=== PATIENT | male | born 1955 | race Caucasian/White ===

== ENCOUNTER 2016-08-11 17:26 | Inpatient (IN) | payer BC, OTHER ==
[~2016-08-11] VITALS: Ht 182.9 cm; Wt 92.0 kg
[2016-08-11 17:52] VITALS: BP 131/82; PULSE 83; RESP 16; TEMP 98.2; O2SAT 94
--- NOTE | 2016-08-11 17:54 | PD ---
HPI Chief Complaint: head injury Time Seen by Provider: 17:54 Travel History International Travel<30 days: No Contact w/Intl Traveler<30days: No Traveled to known affect area: No History of Present Illness HPI 61-year-old male with history of hypertension, gout, who takes an aspirin daily , presents to emergency department for evaluation following a slip and fall. Patient was on a loading ramp when he fell, striking the back of his head. He did not lose consciousness. Patient reports a 2 out of 10 headache isolated to the area of injury. Denies any nausea or vomiting. No focal deficits or injury. Patient has not been recently ill. Denies chest tightness. He has no other symptoms to report. [facility] Past Medical History Gout: Yes Hypertension: Yes Social History Alcohol Use: No Tobacco Use: No Substance Use: No Allergies-Medications (Allergen,Severity, Reaction): Coded Allergies: No Known Allergies (Unverified , 08/11/16) Reported Meds & Prescriptions Reported Meds & Active Scripts Active Reported Vitamin D-1000 (Cholecalciferol) 1,000 Unit Tab 1,000 Units PO DAILY Metoprolol Tartrate 50 Mg Tab 50 Mg PO DAILY Allopurinol 100 Mg Tab 100 Mg PO DAILY Review of Systems Except as stated in HPI: all other systems reviewed are Neg Physical Exam Narrative GENERAL: Well-nourished male patient, in no acute distress SKIN: Focused skin assessment warm/dry. HEAD: 3 cm vertical laceration to the left occipital scalp. Normocephalic. EYES: Pupils equal and round. No scleral icterus. No injection or drainage. ENT: No nasal bleeding or discharge. Mucous membranes pink and moist. NECK: Trachea midline. No JVD. Cervical collar is in place. CARDIOVASCULAR: Regular rate and rhythm. No murmur appreciated. RESPIRATORY: No accessory muscle use. Clear to auscultation. Breath sounds equal bilaterally. GASTROINTESTINAL: Abdomen soft, non-tender, nondistended. Hepatic and splenic margins not palpable. MUSCULOSKELETAL: No obvious deformities. No clubbing. No cyanosis. No edema. NEUROLOGICAL: Awake and alert. No obvious cranial nerve deficits. Motor grossly within normal limits. Normal speech. PSYCHIATRIC: Appropriate mood and affect; insight and judgment normal. Data Data Last Documented VS Vital Signs Date Time Temp Pulse Resp B/P Pulse Ox O2 Delivery O2 Flow Rate FiO2 08/11/16 17:52 98.2 83 16 131/[address] Brain W/O Iv Contrast(Rout) (08/11/16 ) Ct Cerv Spine W/O Contrast (08/11/16 ) Iv Access Insert/Monitor (08/11/16 19:22) Complete Blood Count With Diff (08/11/16 19:22) Basic Metabolic Panel (Bmp) (08/11/16 19:22) Coag Profile (08/11/16 19:22) Electrocardiogram (08/11/16 ) Admit Order (Ed Use Only) (08/11/16 19:40) [facility] Medical Decision Making Medical Screen Exam Complete: Yes Emergency Medical Condition: Yes Medical Record Reviewed: Yes Differential Diagnosis Laceration superficial versus deep versus Hematoma versus skull fracture versus intracranial hemorrhage versus minor head injury Narrative Course 61-year-old male presents to emergency department for evaluation. Patient appears without distress. He does have a 3 cm laceration to the left occipital scalp. Bleeding is controlled. Neuro exam is nonfocal. CT imaging of the brain and cervical spine are ordered. Last Impressions Head CT 08/11/16 0000 Signed Impressions: Service Date/Time: July 18:40 - CONCLUSION: 1. Small acute subdural hemorrhage in between the leaves of the falx. No midline shift. 2. Chronic-appearing sinus disease as above. 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 Kp Royal MD Cervical Spine CT 08/11/16 0000 Signed Impressions: Service Date/Time: July 18:40 - CONCLUSION: Intact cervical spine. Degenerative changes with bilateral foraminal stenosis at C5/C6 and C6/C7. Kp Royal MD Cervical collar is removed. Labs are ordered. Patient is informed of his CT results. Laceration is repaired. A call has been placed to Dr. Yanes neurosurgeon title one reading teacher. Patient [facility] be [facility] to the [facility] under his service. Procedures Procedure Narrative LACERATION LOCATION: Left occipital scalp LENGTH: 3 cm NUMBER OF STITCHES/OBIE: 2 stable REPAIR: The area of the laceration was prepped with Betadine and sterilely draped.The wound was copiously irrigated and explored without evidence of foreign body, tendon injury or neurovascular injury. The wound was closed using obie. This was a single layer repair. Patient tolerated the procedure well. Diagnosis Primary Impression: SDH (subdural hematoma) Additional Impression: Scalp laceration Qualified Code: S01.01XA - Scalp laceration, initial encounter Admitting Information Admitting Physician Requests: Admit Condition: Stable Bebe Andujar Aug 11, 2016 17:54
[2016-08-11] MEDS ORDERED: VITA1000 PO (18:03)
[2016-08-11] MEDS ORDERED: ALLO100T PO (18:03)
[2016-08-11] MEDS ORDERED: METO50TA PO (18:03)
--- NOTE | 2016-08-11 19:01 | RADRPT ---
EXAM DATE/TIME: 08/11/2016 18:40 [facility] COMPARISON: No previous studies available for comparison. INDICATIONS : Trauma, slip and fall on concrete. RADIATION DOSE: 56.35 CTDIvol (mGy) MEDICAL HISTORY : None SURGICAL HISTORY : None. ENCOUNTER: Initial ACUITY: 1 day PAIN SCALE: 5/10 LOCATION: cranial TECHNIQUE: Multiple contiguous axial images were obtained of the head. Using automated exposure control and adj ustment of the mA and/or kV according to patient size, radiation dose was kept as low as reasonably a chievable to obtain optimal diagnostic quality images. FINDINGS: Small amount of acute subdural blood seen in between the leaves of the falx. No other intracranial he morrhage demonstrated. No mass, mass effect or midline shift. No evidence of an acute ischemic event. Incidentally seen basal ganglia calcification. The skull is intact. Completely opacified and partially expanded right maxillary air cell, most likely mucocele. There is near-complete opacification of the right frontal air cells as well. CONCLUSION: 1. Small acute subdural hemorrhage in between the leaves of the falx. No midline shift. 2. Chronic-appearing sinus disease as above. 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 Kp Royal MD on August 11, 2016 at 18:56 Board Certified Radiologist. This report was verified electronically.
--- NOTE | 2016-08-11 19:07 | RADRPT ---
EXAM DATE/TIME: 08/11/2016 18:40 [facility] COMPARISON: No previous studies available for comparison. INDICATIONS : Trauma, slip and fall on concrete. RADIATION DOSE: 34.75 CTDIvol (mGy) MEDICAL HISTORY : None SURGICAL HISTORY : None. ENCOUNTER: Initial ACUITY: 1 day PAIN SCALE: 3/10 LOCATION: neck TECHNIQUE: Volumetric scanning of the cervical spine was performed. Multiplanar reconstructions in the sagittal, coronal and oblique axial planes were performed. Using automated exposure control and adjustment o f the mA and/or kV according to patient size, radiation dose was kept as low as reasonably achievable to obtain optimal diagnostic quality images. FINDINGS: Cervical spine alignment is normal. Vertebral bodies have normal height. No cortical break or trabecu lar disruption. Disc space narrowing with uncovertebral and facet osteoarthritis noted, moderate to severe at C5/C6 a nd moderate at C6/C7. There is bilateral foraminal stenosis at both of these levels. Juxtavertebral soft tissues are within normal limits. CONCLUSION: Intact cervical spine. Degenerative changes with bilateral foraminal stenosis at C5/C6 and C6/C7. Kp Royal MD on August 11, 2016 at 19:03 Board Certified Radiologist. This report was verified electronically.
[2016-08-11 20:02] LABS: AUTOMATED NEUTROPHIL # 11.3 TH/MM3 (1.8-7.7); BASOPHIL # 0.1 TH/MM3 (0-0.2); BASOPHIL % 0.4 % (0.0-2.0); EOSINOPHIL # 0.2 TH/MM3 (0-0.4); EOSINOPHIL % 1.4 % (0.0-4.0); HEMATOCRIT 44.9 % (39.0-51.0); HEMO FLAGS DIFF FINAL; LYMPH % 10.8 % (9.0-44.0); LYMPHOCYTE # 1.5 TH/MM3 (1.0-4.8); MEAN CELL VOLUME 90.3 FL (80.0-100.0); MEAN CORPUSCULAR HEMOGLOBIN 31.4 PG (27.0-34.0); MEAN CORPUSCULAR HGB CONC 34.8 % (32.0-36.0); MONO % 5.7 % (0.0-8.0); NEUT % 81.7 % (16.0-70.0); PLATELET COUNT 240 TH/MM3 (150-450); RED BLOOD COUNT 4.97 MIL/MM3 (4.50-5.90); RED CELL DISTRIBUTION WIDTH 13.3 % (11.6-17.2); WHITE BLOOD COUNT 13.8 TH/MM3 (4.0-11.0)
[2016-08-11 20:18] LABS: APTT (PATIENT) 25.9 SEC (24.3-30.1); PROTHROMBIN TIME - PATIENT 10.7 SEC (9.8-11.6)
[2016-08-11 20:20] VITALS: BP 134/78; PULSE 74; RESP 14; O2SAT 99
[2016-08-11 20:44] LABS: BICARBONATE 24.8 MEQ/L (21.0-32.0); POTASSIUM 3.8 MEQ/L (3.5-5.1)
[2016-08-11] MEDS ORDERED: RESP: ALBUTEROL 2.5 MG/3 ML NEB (PRN) NEB (21:15)
[2016-08-11] MEDS ORDERED: ALUMINUM/MAGNESIUM/SIMETH 30 ML CUP PO PRN (21:15)
[2016-08-11] MEDS ORDERED: CALCIUM GLUCONATE INJ 1 GM in SODIUM CHLORIDE 0.9% INJ 100 ML IV PRN (21:15)
[2016-08-11] MEDS ORDERED: MENTHOL LOZENGE BUCCAL PRN (21:15)
[2016-08-11] MEDS ORDERED: LORazepam 2 MG/ML VIAL IVP PRN (21:15)
[2016-08-11] MEDS ORDERED: POTASSIUM CHLOR 20 MEQ PREMIX 100 ML IV PRN (21:15)
[2016-08-11] MEDS ORDERED: MORPHINE SULFATE 4 MG/ML INJ IV PRN (21:15)
[2016-08-11] MEDS ORDERED: ZOLPIDEM TARTRATE 5 MG TAB PO PRN (21:15)
[2016-08-11] MEDS ORDERED: cloNIDine HCL 0.1 MG TAB PO PRN (21:15)
[2016-08-11] MEDS ORDERED: ONDANSETRON HCL 4 MG/2 ML VIAL IV PRN (21:15)
[2016-08-11] MEDS ORDERED: ACETAMINOPHEN/HYDROcodone 325 MG/10 MG TAB PO PRN ×2 (21:15)
[2016-08-11] MEDS ORDERED: MAGNESIUM SULFATE INJ 2 GM in SODIUM CHLORIDE 0.9% INJ 100 ML IV PRN (21:15)
[2016-08-11] MEDS ORDERED: LABETALOL HCL 100 MG/20 ML VIAL IV PRN (21:15)
[2016-08-11] MEDS ORDERED: MAGNESIUM HYDROXIDE SUSP 30 ML CUP PO PRN (21:15)
[2016-08-11] MEDS ORDERED: ACETAMINOPHEN 325 MG TAB PO PRN (21:15)
[2016-08-11] MEDS ORDERED: SODIUM CHLORIDE 0.9% FLUSH 10 ML FLUSH IV FLUSH PRN (21:15)
[2016-08-11 21:33] VITALS: O2SAT 95
[2016-08-11 22:05] VITALS: BP 126/80; PULSE 78; RESP 16; O2SAT 97
[2016-08-11 23:15] VITALS: BP 142/82; PULSE 72; RESP 16; O2SAT 96
[2016-08-12] VITALS (13 sets, daily range): BP systolic 93–154; BP diastolic 57–91; PULSE 58–76; RESP 11–20; TEMP 96.4–98.8; O2SAT 91–100
--- NOTE | 2016-08-12 08:52 | HHI.NSPN ---
(Jackson Blanco) History Chief Complaint: SDH, headache intermittently. (Jackson Blanco) Interval History 08/12/16: Pt awake and alert. Complains of intermittent headache frontal area with associated nausea. Headache resolved with pain medication. No paresthesias in face or extremities. (Jackson Blanco) Review of Systems General: Negative for: fever, chills, insomnia Respiratory: Negative for: shortness of breath, cough, sputum Cardiovascular: Negative for: chest pain Gastrointestinal: Negative for: nausea, vomitting, diarrhea, constipation ( Jackson Blanco) Exam Results Vital Signs Date Time Temp Pulse Resp B/P Pulse Ox O2 Delivery O2 Flow Rate FiO2 08/12/16 08:41 94 21 08/12/16 07:00 Room Air 08/12/16 06:00 64 08/12/16 04:00 98.8 16 144/90 (Jackson Blanco) Physical Examination Resp: CTA bilaterally Heart: NSR no murmurs Abd: Soft positive bs Skin: No cyanosis or erythema. Muscle: Moves all 4 extremities well symmetrically. 5/5 strength. Neuro: Pt awake and alert. Follows commands well. Speech clear and appropriate. Face symmetric. Pupils 3mm bilaterally. (Jackson Blanco) Lab, Micro, Other Results Last Impressions Head CT 08/11/16 0000 Signed Impressions: Service Date/Time: July 18:40 - CONCLUSION: 1. Small acute subdural hemorrhage in between the leaves of the falx. No midline shift. 2. Chronic-appearing sinus disease as above. 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 Kp Royal MD Cervical Spine CT 08/11/16 0000 Signed Impressions: Service Date/Time: July 18:40 - CONCLUSION: Intact cervical spine. Degenerative changes with bilateral foraminal stenosis at C5/C6 and C6/C7. Kp Royal MD Laboratory Tests Test 08/11/16 08/12/16 19:42 03:55 White Blood Count 13.8 TH/MM3 Red Blood Count 4.97 MIL/MM3 Hemoglobin 15.6 GM/DL Hematocrit 44.9 % Mean Corpuscular Volume 90.3 FL Mean Corpuscular Hemoglobin 31.4 PG Mean Corpuscular Hemoglobin 34.8 % Concent Red Cell Distribution Width 13.3 % Platelet Count 240 TH/MM3 Mean Platelet Volume 8.4 FL Neutrophils (%) (Auto) 81.7 % Lymphocytes (%) (Auto) 10.8 % Monocytes (%) (Auto) 5.7 % Eosinophils (%) (Auto) 1.4 % Basophils (%) (Auto) 0.4 % Neutrophils # (Auto) 11.3 TH/MM3 Lymphocytes # (Auto) 1.5 TH/MM3 Monocytes # (Auto) 0.8 TH/MM3 Eosinophils # (Auto) 0.2 TH/MM3 Basophils # (Auto) 0.1 TH/MM3 CBC Comment DIFF FINAL Differential Comment Prothrombin Time 10.7 SEC Prothromb Time International 1.0 RATIO Ratio Activated Partial 25.9 SEC Thromboplast Time Sodium Level 141 MEQ/L Potassium Level 3.8 MEQ/L Chloride Level 106 MEQ/L Carbon Dioxide Level 24.8 MEQ/L Anion Gap 10 MEQ/L Blood Urea Nitrogen 15 MG/DL Creatinine 1.09 MG/DL Estimat Glomerular Filtration 69 ML/MIN Rate Random Glucose 159 MG/DL Calcium Level 8.7 MG/DL Nasal Screen MRSA (PCR) MRSA NOT DETECTED 08/11/16 08/11/16 08/12/16 15:00 23:00 07:00 Intake Total 100 ml Output Total 0 ml Balance 100 ml Intake Oral 100 ml Output Urine Total 0 ml # Bowel Movements 0 (Jackson Blanco) Medical Decision Making Impression and Plan A: 61 y/o M with acute SDH after fall. P: Continue with neuro checks Follow up CT head this morning ordered If stable increase activity Continue with pain control for headaches. Discusses with patient and family at bedside. (Jackson Blanco) Attending Statement The exam, history, and the medical decision-making described in the above note were completed with the assistance of the mid-level provider. I reviewed and agree with the findings presented. I attest that I had a [id number] encounter with the patient on the same day, and personally performed and documented my assessment and findings in the medical record. Complains of some vertigo and lightheadedness when ambulating. Follow-up CT scan of the head the stable small interhemispheric subdural hemorrhage. Physical therapy safety evaluation. Transfer to floor. Anticipate discharge the next day or so if ambulating safely. He will follow up with his local physicians after discharge. Discussed with patient and at bedside. (Heath Yanes MD) Jackson Blanco Aug 12, 2016 08:51 Heath Yanes MD Aug 12, 2016 14:42
[2016-08-12] MEDS: CHOLECALCIFEROL (VIT D3) 1000 UNIT TAB PO SCH (08:55)
[2016-08-12] MEDS: PANTOPRAZOLE SOD 40 MG DELAYED RELEASE TAB PO SCH (08:55)
[2016-08-12] MEDS: DOCUSATE SODIUM 100 MG CAP PO SCH ×2 (08:55→20:52)
[2016-08-12] MEDS: METOPROLOL TARTRATE 50 MG TAB PO SCH (08:55)
[2016-08-12] MEDS: ALLOPURINOL 100 MG TAB PO SCH (08:55)
[2016-08-12] MEDS: SODIUM CHLORIDE 0.9% FLUSH 10 ML FLUSH IV FLUSH SCH ×2 (08:56→20:52)
--- NOTE | 2016-08-12 10:01 | RADRPT ---
EXAM DATE/TIME: 08/12/2016 09:25 [facility] COMPARISON: CT CERVICAL SPINE W/O CONTRAST, August 11, 2016, 18:40. INDICATIONS : Head trauma follow up. RADIATION DOSE: 69.19 CTDIvol (mGy) MEDICAL HISTORY : Cerebrovascular disease. Hypertension. SURGICAL HISTORY : None. ENCOUNTER: Subsequent ACUITY: 2 days PAIN SCALE: 2/10 LOCATION: cranial posterior aspect. TECHNIQUE: Multiple contiguous axial images were obtained of the head. Using automated exposure control and adj ustment of the mA and/or kV according to patient size, radiation dose was kept as low as reasonably a chievable to obtain optimal diagnostic quality images. FINDINGS: CEREBRUM: The ventricles are normal for age. No evidence of midline shift, mass lesion, hemorrhage or acute in farction. No extra-axial fluid collections are seen. There is physiologic calcification within the b la ganglia bilaterally. POSTERIOR FOSSA: The cerebellum and brainstem are intact. The 4th ventricle is midline. The cerebellopontine angle i s unremarkable. EXTRACRANIAL: The visualized portion of the orbits is intact. There is complete opacification of the right maxillar y sinus with expansion of the sinus suggesting mucocele. There is opacification of the right side of frontal sinus as well. SKULL: The calvaria is intact. No evidence of skull fracture. CONCLUSION: 1. Physiologic calcification basal ganglia bilaterally. 2. Complete opacification of the right maxillary sinus with expansion of the sinus suggesting mucocel e. 3. No acute intracranial abnormality is identified. Lenny Ferguson MD on August 12, 2016 at 9:51 Board Certified Radiologist. This report was verified electronically.
--- NOTE | 2016-08-12 15:37 | MH ---
cc: CÉSAR WILKES M.D. DATE OF ADMISSION: 08/11/2016 ADMITTING DIAGNOSIS Closed head injury. HISTORY OF PRESENT ILLNESS A 61-year-old gentleman who presented to the emergency room after a slip and fall [facility] where he fell striking the back of his head, although denies any loss of consciousness. He suffered an occipital laceration and complained of some headaches and was brought to [facility] Emergency Room. The scalp laceration was repaired by the ER physician and CT scan of the head obtained reveals a small posterior interhemispheric subdural hemorrhage. CT of the cervical spine does not reveal any fractures. He denies any neck pain or back pain or any numbness or paresthesias in the upper or lower extremities. PAST MEDICAL HISTORY 1. Hypertension. 2. Gout. MEDICATIONS 1. Allopurinol 100 mg daily. 2. Metoprolol 50 mg daily. 3. Vitamin-D 1000 mcg daily. ALLERGIES No known drug allergies. 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 He denies smoking and drinks alcohol on an occasional basis. REVIEW OF SYSTEMS Complains of mild headache. Denies any neck pain. Denies any back pain. Denies any numbness or paresthesias in the upper or lower extremities. Denies any double vision or blurred vision. No nausea or vomiting. Does complain of vertigo and lightheadedness, especially when he attempts to get up and walk. Denies any incontinence. No chest pain or shortness of breath. No abdominal pain. No history of easy bleeding or bruising. No fever or chills. No recent weight gain or weight loss. LABORATORY STUDIES White blood cell count 13.8, hemoglobin 15.6, platelet count 240. PT 10.7, INR 1.0, PTT 25.9. Sodium 141, potassium 3.8, BUN 15, creatinine 1.09, glucose 159. PHYSICAL EXAMINATION VITAL SIGNS: Temperature 98.8, pulse 78, respiratory rate 16, blood pressure 126/80, oxygen saturation 97% on room air. HEAD: There is a small occipital laceration which has been stapled. NECK: Supple with no guarding or rigidity. CHEST: Clear to auscultation bilaterally. HEART: Regular rate and rhythm. Normal S1, S2. ABDOMEN: Soft, nontender. EXTREMITIES: No cyanosis or edema. NEUROLOGIC: He is awake and alert. Pupils are equal and reactive. Extraocular movements are intact. Face is symmetric. Tongue is midline. Motor strength 5/5 in the upper and lower extremities. Negative Babinski. Speech is fluent. Light touch sensation is intact. IMPRESSION 1. Mild traumatic brain injury with a small interhemispheric posterior subdural hemorrhage without mass effect or midline shift. 2. Hypertension, well-regulated. PLAN The patient will be admitted to the intensive care unit for close neurologic and hemodynamic monitoring. His head of bed will be kept elevated at 30 degrees. Sequential compression device will be used for DVT prophylaxis along with Protonix for gastrointestinal stress ulcer prophylaxis. His diet and activity status will be increased as tolerated. A follow-up CT scan of the head will be obtained in the morning to rule out any progression of his subdural hemorrhage. MD NILE Sapp/JUDAH /1:58 PM /3:21 PM
--- NOTE | 2016-08-12 22:36 | EKG ---
Date Performed: 08/11/2016 Time Performed: 20:08:34 PTAGE: 61 years EKG: Sinus rhythm NORMAL ECG NO PREVIOUS TRACING DOCTOR: Yunier Martinez Interpretating Date/Time 08/12/2016 22:34:55
[2016-08-13 01:22] VITALS: BP 131/85; PULSE 60; RESP 18; TEMP 96.4; O2SAT 100
[2016-08-13 04:27] VITALS: BP 140/88; PULSE 64; RESP 18; TEMP 97.2; O2SAT 100
[2016-08-13 08:00] VITALS: BP 143/88; PULSE 84; RESP 18; TEMP 97.1; O2SAT 98
[2016-08-13] MEDS: METOPROLOL TARTRATE 50 MG TAB PO SCH (08:43)
[2016-08-13] MEDS: PANTOPRAZOLE SOD 40 MG DELAYED RELEASE TAB PO SCH (08:43)
[2016-08-13] MEDS: CHOLECALCIFEROL (VIT D3) 1000 UNIT TAB PO SCH (08:43)
[2016-08-13] MEDS: DOCUSATE SODIUM 100 MG CAP PO SCH (08:43)
[2016-08-13] MEDS: ALLOPURINOL 100 MG TAB PO SCH (08:43)
[2016-08-13] MEDS: SODIUM CHLORIDE 0.9% FLUSH 10 ML FLUSH IV FLUSH SCH (08:44)
[2016-08-13 12:00] VITALS: BP 123/80; PULSE 66; RESP 18; TEMP 97.7; O2SAT 94
--- NOTE | 2016-08-13 13:57 | HHI.NSPN ---
History Chief Complaint: SDH, headache intermittently. Interval History Mild dizziness without vertigo. No significant headache. Tolerating diet well System Review Comments No blurred vision or diplopia. Exam Results Vital Signs Date Time Temp Pulse Resp B/P Pulse Ox O2 Delivery O2 Flow Rate FiO2 08/13/16 12:00 97.7 66 18 123/80 94 08/12/16 08:41 21 08/12/16 07:00 Room Air Intake and Output 08/12/16 08/12/16 08/13/16 08:00 16:00 00:00 Intake Total 100 ml 720 ml Output Total 0 ml Balance 100 ml 720 ml Physical Examination Resp: CTA bilaterally Heart: NSR no murmurs Abd: Soft positive bs Skin: No cyanosis or erythema. Muscle: Moves all 4 extremities well symmetrically. 5/5 strength. Neuro: Pt awake and alert. Follows commands well. Speech clear and appropriate. Face symmetric. Pupils 3mm bilaterally. Findings motor movements intact in the upper extremities Extraocular movements intact. No nystagmus. Lab, Micro, Other Results Last Impressions Head CT 08/12/16 0600 Signed Impressions: Service Date/Time: Friday, August 12, 2016 09:25 - CONCLUSION: 1. Physiologic calcification basal ganglia bilaterally. 2. Complete opacification of the right maxillary sinus with expansion of the sinus suggesting mucocele. 3. No acute intracranial abnormality is identified. Lenny Ferguson MD Cervical Spine CT 08/11/16 0000 Signed Impressions: Service Date/Time: July 18:40 - CONCLUSION: Intact cervical spine. Degenerative changes with bilateral foraminal stenosis at C5/C6 and C6/C7. Kp Royal MD Medical Decision Making Impression and Plan Impression: 1. Mild traumatic brain injury. Neurologic stable. Plan: Findings were discussed with the patient and his family today. He is doing well from a neurosurgical standpoint He feels stable enough to discharge home today. Signs and symptoms to watch for discussed. He is to avoid NSAIDs, aspirin, vitamin E, cholesterol medications for at least 2 weeks. He will follow up with his primary care physician early next week. Justus Gray MD Aug 13, 2016 13:57
--- NOTE | 2016-08-13 14:01 | HHI.DCPOC ---
Discharge Care Plan Diagnosis: (1) SDH (subdural hematoma) Your Health Problems Are: Exercise Tolerance Goals to Promote Your Health * To prevent worsening of your condition and complications * To maintain your health at the optimal level Directions to Meet Your Goals Take your medications as prescribed Follow your dietary instruction Follow activity as directed Keep your appointments as scheduled Take your immunizations and boosters as scheduled If your symptoms worsen call your PCP, if no PCP go to Urgent Care Center or Emergency Room Smoking is Dangerous to Your Health. Avoid second hand smoke Call the 24-hour hour crisis hotline for domestic abuse at Justus Gray MD Aug 13, 2016 14:01
== END 2016-08-13 16:08 | disposition home or self-care (01) | DRG 87 ==
LOC: NEPC 17:26 → NEDA 19:42 → NEDH 08-12 00:13 → N03B 08-12 03:26 → N05B 08-12 16:35
PROVIDERS: ADMIT Neurological Surgery; ATTEND Neurological Surgery
PROC: 0HQ0XZZ Repair Scalp Skin, External Approach (ICD-10-PCS; principal; 2016-08-11)
DX: S06.5X0A Traumatic subdural hemorrhage without loss of consciousness, initial encounter (principal); S01.01XA Laceration without foreign body of scalp, initial encounter; W01.0XXA Fall on same level from slipping, tripping and stumbling without subsequent striking against object, initial encounter; Y92.59 Other trade areas as the place of occurrence of the external cause; I10 Essential (primary) hypertension; M10.9 Gout, unspecified
CPT/HCPCS: 12002; 70450; 72125; 80048; 85025; 85610; 85730; 87641; 93005; 94150; J2405